=== PATIENT | male | born 1940 | race Caucasian/White ===

== ENCOUNTER 2021-08-21 06:15 | Day surgery (SDC) | payer MEDICARE, OTHER ==
[~2021-08-21 06:15] MED LIST: Sodium Chloride 0.9% 10 ML Syringe FLUSH PRN
[2021-08-21] MEDS ORDERED: Ketorolac 30 MG/ML SDV IVPUSH ONE (06:16)
[2021-08-21] MEDS ORDERED: Propofol 200 MG/20 ML SDV IV ONE (06:16)
[2021-08-21] MEDS ORDERED: fentaNYL 100 MCG/2 ML SDV IV ONE (06:16)
[2021-08-21] MEDS ORDERED: Phenylephrine 0.5% Nasal Spray 15 ML Bot NAS ONE (06:16)
[2021-08-21] MEDS: Lactated Ringers 1,000 ML IV SCH (07:13)
[2021-08-21] MEDS: ceFAZolin 2 GM in Premix Bag 1 BAG IV ONE (07:22)
[2021-08-21] MEDS: Lidocaine 1% with EPINEPHrine 1:100,000 20 ML MDV INJECT ONE (07:55)
[2021-08-21] MEDS: Bupivacaine 0.5% 30 ML SDV INJECT ONE (07:55)
== END 2021-08-21 09:43 | disposition home or self-care (01) ==
LOC: FB.SDS 06:15
PROVIDERS: ATTEND Surgery
DX: N49.2 Inflammatory disorders of scrotum (principal); L72.0 Epidermal cyst; I25.10 Atherosclerotic heart disease of native coronary artery without angina pectoris; Z79.899 Other long term (current) drug therapy; Z20.822 Contact with and (suspected) exposure to COVID-19
CPT/HCPCS: 88304; A9270-GY; J0690; J1885; J2704; J3010; J3490; J7120

== ENCOUNTER 2021-10-16 06:23 | Day surgery (SDC) | payer MEDICARE, OTHER ==
[~2021-10-16 06:23] MED LIST changes: +Lactated Ringers 1,000 ML IV SCH
[2021-10-16] MEDS ORDERED: Propofol 200 MG/20 ML SDV IV ONE (06:24)
[2021-10-16] MEDS ORDERED: ceFAZolin 2 GM in Premix Bag 1 BAG IV ONE (07:30)
[2021-10-16] MEDS ORDERED: Lidocaine 1% with EPINEPHrine 1:100,000 20 ML MDV INJECT ONE (08:30)
[2021-10-16] MEDS ORDERED: Bupivacaine 0.25% 30 ML SDV INJECT ONE (08:31)
== END 2021-10-16 10:40 | disposition home or self-care (01) ==
LOC: FB.SDS 06:23
PROVIDERS: ATTEND Surgery
DX: Z12.11 Encounter for screening for malignant neoplasm of colon (principal); K63.5 Polyp of colon; K42.9 Umbilical hernia without obstruction or gangrene; Z87.19 Personal history of other diseases of the digestive system; Z20.822 Contact with and (suspected) exposure to COVID-19
CPT/HCPCS: 00750-QZ; 00812-QZ; 88305; J0690; J2704; J3490; J7120